=== PATIENT | female | born 1960 | race Caucasian/White ===

== ENCOUNTER 2023-07-07 20:42 | Emergency (ER) | payer OTHER ==
[~2023-07-07] VITALS: Ht 167.6 cm; Wt 57.0 kg
[2023-07-07 20:54] VITALS: TEMP 98.6; O2SAT 98
[2023-07-07] MEDS ORDERED: BUPIVACAINE HCL/PF 0.75% (7.5MG/ML) 10ML INJ ONE (21:15)
[2023-07-07 22:41] LABS: BASOPHILS % 0.4 % (0.0-2.0); HEMATOCRIT. 46.3 % (36.0-48.0); HEMOGLOBIN. 15.2 g/dL (12.0-16.0); LYMPHOCYTES % 45.3 % (20.0-50.0); MEAN CORPUSCULAR HEMOGLOBIN 32.5 pg (28.0-32.0); MEAN CORPUSCULAR HGB CONC 32.9 g/dL (31.0-37.0); MEAN PLATELET VOLUME 7.5 fl (7.4-10.4); MONOCYTES % 5.9 % (2.0-8.0); NEUTROPHILS % 46.4 % (40.0-76.0); PLATELET 226 x1000/uL (130-400); RED BLOOD CELL COUNT 4.68 mill/uL (4.2-5.4); RED CELL DISTRIBUTION WIDTH 13.8 % (11.6-14.6); WHITE BLOOD COUNT 7.2 x1000/uL (4.5-11.0)
[2023-07-07] MEDS: KETOROLAC 30MG/ML VIAL IV ONE (23:04)
[2023-07-07] MEDS: DIPHENHYDRAMINE 50MG/ML VIAL IV ONE (23:04)
[2023-07-07] MEDS: METOCLOPRAMIDE HCL 10MG/2ML VIAL IV ONE (23:05)
[2023-07-07] MEDS: SODIUM CHLORIDE 0.9% 1,000 ML IV ONE (23:05)
[2023-07-07] MEDS: ONDANSETRON HCL 4MG/2ML INJ IV ONE (23:38)
[2023-07-08 00:38] LABS: CHLORIDE 109 mEq/L (98-107); POTASSIUM 3.5 mEq/L (3.5-5.1); SODIUM 143 mEq/L (136-145)
[2023-07-08 00:39] LABS: CALCIUM 9.6 mg/dL (8.7-10.4); CARBON DIOXIDE 28 mEq/L (21-32)
[2023-07-08 00:44] LABS: CREATININE 0.9 mg/dL (0.6-1.0); GLUCOSE 82 mg/dL (70-105); UREA NITROGEN BLOOD 12 mg/dL (9-23)
[2023-07-08 00:46] LABS: ALANINE AMINOTRANSFERASE 32 IU/L (10-49); ALBUMIN 4.4 g/dL (3.2-4.8); ASPARTATE AMINOTRANSFERASE 25 IU/L (<34); BILIRUBIN TOTAL 0.5 mg/dL (0.1-1.0); PROTEIN TOTAL 6.6 g/dL (6.0-8.3)
[2023-07-08] MEDS ORDERED: NAPR220C61 MT (01:56)
[2023-07-08 02:01] VITALS: BP 153/112; PULSE 100; RESP 18
[2023-07-08] MEDS: MORPHINE SULFATE 4 MG/ML INJ (FOR IV/IM USE) IV ONE (02:01)
== END 2023-07-08 02:42 | disposition home or self-care (01) ==
LOC: ER 20:42
DX: R51.9 Headache, unspecified (principal); Z88.8 Allergy status to other drugs, medicaments and biological substances
CPT/HCPCS: 85025; 36415; 70450; 96361; 96374; 96375 ×2; 99285; 80053; J3490; J1200; J1885; J2405; J7030; Z7610 ×3; J2270